=== PATIENT | female | born 1940 | race Asian ===

== ENCOUNTER 2019-01-02 17:25 | Inpatient (IN) | payer MEDICAID ==
[~2019-01-02] VITALS: Ht 160 cm; Wt 46.3 kg
--- NOTE | 2019-01-02 17:48 | NUR ---
PT BIB FAMILY C/C N/V SOB WITH COUGH X 1 WK PER FAMILY S/P FALL X 1 WK AGO AT BEDSIDE TO [facility]
--- NOTE | 2019-01-02 17:57 | NUR ---
PLEASE ENTER FULL NAMES OF CLINICAL DOCUMENT IMPROVEMENT EDUCATOR/RN Patient data collected by (CLINICAL DOCUMENT IMPROVEMENT EDUCATOR):NORMA BROWNE Assessment reviewed and completed by (RN):RONNIE LESTER
--- NOTE | 2019-01-02 18:12 | NUR ---
XRAY AT BEDSIDE
[2019-01-02 18:16] LABS: BASOPHIL % 0.3 % (0-2); RED CELL DISTRIBUTION WIDTH 13.2 % (11.5-14.5)
--- NOTE | 2019-01-02 18:19 | NUR ---
MED IV FOR 2-3/10 BACK PAIN & NAUSEA.
[2019-01-02 18:20] LABS: PLATELET COUNT 703 x10^3mcL (130-400)
[2019-01-02 18:23] LABS: CARBON DIOXIDE 26.2 mmol/L (21-32); CHLORIDE SERUM 105 mmol/L (98-107); CREATININE SERUM 1.1 mg/dL (0.6-1.0); GLUCOSE SERUM 112 mg/dL (74-106); POTASSIUM SERUM 3.9 mmol/L (3.5-5.1); SODIUM SERUM 139 mmol/L (136-145)
[2019-01-02 18:27] LABS: ALBUMIN 3.5 g/dL (3.4-5.0); ALKALINE PHOSPHATASE 123 U/L (46-116); ALT/SGPT 20 U/L (14-59); AST/SGOT 13 U/L (15-37); BILIRUBIN TOTAL 0.62 mg/dL (0.20-1.00); LIPASE 158 IU/L (73-393); TOTAL PROTEIN, SERUM 8.1 g/dL (6.4-8.2)
--- NOTE | 2019-01-02 18:56 | NUR ---
TAKEN TO RADIOLOGY FOR CT
--- NOTE | 2019-01-02 19:05 | NUR ---
REPORT RECIEVED FROM NORMA GARCIAN. PT IN CT. WILL REASSESS UPON RETURN.
--- NOTE | 2019-01-02 19:51 | NUR ---
PT AWAKE AND ALERT, LAYING IN POSITION OF COMFORT. NS RUNNING AT 100ML/HR. VSS, RESPS E/U, NAD NOTED AT THIS TIME. 2 SIDE RAILS UP, BED IN LOW AND LOCKED POSITION. DAUGHTER AT BEDSIDE. CALL LIGHT W/IN REACH. AWAITING RESULTS.
--- NOTE | 2019-01-02 21:14 | NUR ---
IV ABX STARTED AT 100ML/HR PER MD ORDER. VERIFIED BLOOD CULTURES RECIEVED AT LAB. VSS, RESPS E/U, NAD NOTED AT THIS TIME. WILL CONTINUE TO MONITOR. DAUGHTER AT BEDSIDE. CALL LIGHT W/IN REACH.
[2019-01-02] MEDS ORDERED: NOR10 PO (22:18)
[2019-01-02] MEDS ORDERED: TRAMADOL HCL50 MG PO (22:19)
--- NOTE | 2019-01-02 22:31 | NUR ---
REPORT GIVEN TO JASWANT GARCIA
[2019-01-02 23:17] VITALS: BP 173/42
--- NOTE | 2019-01-02 23:30 | NUR ---
RECEVIED PT FROM ER, PT ADMIT FOR PNA, PT IS A/O X4, VERBAL RESPONSIVE, ABLE TO TELL WHAT SHE NEEDS. LUNG SOUND DIM CELINA BASE. DENY ANY SOB, BUT PT C/O DRY COUGH, OCCASIONALLY, PO2 96% IN ROOM AIR. DENY ANY CHEST PAIN OR DISCOMFORT, BOWEL SOUND PRESENT ALL 4 QUADRANTS, NO DISTENTION, NO TENDER. PEDAL PULSE PRESENT BOTH FEET, NO EDEMA, IV AT LEFT AC, NO LEAKING, NO INFILTRATION. PT RECENTLY HAS TAILBONE FX. PT UNABLE TO STAND UP. SKIN IS INTACT. ALL ADLS ASSIST, ALL NEED MET, CALL LIGHT IN REACH, WILL CONTINUE TO MONITOR.
--- NOTE | 2019-01-02 23:30 | NUR ---
RECIEVED PT FROM MING GARCIA. PT RESTING IN BED AT THIS TIME. DENIES ANY PAIN OR DISCOMFORT AT THIS TIME. BREATHING E/U ON RA. BED AT LOWEST POSITION. CALL LIGHT WITHIN REACH. WILL CONTINUE TO MONITOR.
[2019-01-03 00:04] VITALS: BP 143/55
[2019-01-03 02:00] VITALS: BP 160/59
[2019-01-03 05:29] VITALS: BP 160/59
--- NOTE | 2019-01-03 06:37 | NUR ---
PT RESTING IN BED COMFORTABLY. NO S/S OF PAIN AT THIS TIME. PT BP 160/[address] CYR [address] CYR ORDERED APRESOLINE, PT HR TOO LOW TO GIVE. MEDICATED PT WITH MORNING BP MED EARLY. DR CYR NOTIFIED. BED AT LOWEST POSITION. CALL LIGHT WITHIN REACH. WILL ENDORSE TO DAY NURSE.
--- NOTE | 2019-01-03 07:30 | NUR ---
PT ENDORSE TO ME THIS MORNING, LAYING IN BED RESTING. AA/O X4, BREATHING EVEN AND UNLABORED ON R, NO ACUTE RESP DISTRESS OR SOB NOTED. EDUCATED PT ON USING I.S., AGREED. MEDSURG/ DENIES ANY CP OR PRESSURE. BOWEL SOUNDS ACTIVE IN ALL FOUR QUADS. INCONT AT TIMES/ BEDPAN. GEN WEAKNESS. IV TO THE LAC INTACT AND PATENT/ INFUSING AT 70ML/HR/ NO REDNESS OR SWELLING NOTED. WILL CONTINUE TO MONITOR.
--- NOTE | 2019-01-03 07:30 | NUR ---
PT ENDORSE TO ME THIS MORNING, SITTING UP IN BED. BREATHING EVEN AND UNLABORED ON RA, NO ACUTE RESP DISTRESS OR SOB NOTED. MEDSURG, DENIES ANY CP OR PRESSURE. GEN WEAKNESS NOTED, TRIED TO EDUCATE PT TO CALL FOR ASSIST WHEN SHE NEED TO GET UP FROM BED OR CHAIR, PT SAID OK. IV TO TO THE LAC INTACT AND PATENT/ PER NIGHT NURSE PT REFUSING TO HAVE IV FLUIDS INFUSING. CALL LIGHT IN REACH. BED IN LOW POSITION/ WILL CONTINUE TO MONITOR.
[2019-01-03 09:15] VITALS: BP 132/43
[2019-01-03 10:35] LABS: BASOPHIL % 0.3 % (0-2); RED CELL DISTRIBUTION WIDTH 13.2 % (11.5-14.5)
[2019-01-03 10:39] LABS: PLATELET COUNT 613 x10^3mcL (130-400)
[2019-01-03 14:02] LABS: CALCIUM 8.7 mg/dL (8.5-10.1); CARBON DIOXIDE 23.8 mmol/L (21-32); CHLORIDE SERUM 105 mmol/L (98-107); GLUCOSE SERUM 140 mg/dL (74-106); POTASSIUM SERUM 4.1 mmol/L (3.5-5.1); SODIUM SERUM 141 mmol/L (136-145)
[2019-01-03 14:40] LABS: microscopic required? YES; urine erythrocyte NEGATIVE (NEGATIVE)
[2019-01-03 15:17] LABS: AMPHETAMINE QUAL UR NONE DETECTED (See below)
--- NOTE | 2019-01-03 15:39 | NUR ---
PT WAS SEEN FOR DYSPHAGIA. PT WAS ABLE TO SAFELY SWALLOW PUREE DIET WITH THIN LIQUID. PT HAD MILD TO MODERATE DIFFICULTY WITH MASTICATION SKILLS. RECOMMENDATION PUREE DEIT WITH THIN LIQUID SMALL BITES AND SIPS ONLY 1:1 SUPERVISION
[2019-01-03 17:18] VITALS: BP 142/46
--- NOTE | 2019-01-03 19:30 | NUR ---
WILL ENDORSE TO INCOMING RN. NO ACUTE CHANGES AT THIS TIME.
[2019-01-03 20:00] VITALS: BP 162/45
--- NOTE | 2019-01-03 20:00 | NUR ---
RECEIVED PT IN BED, RESTING QUIETLY. A/OX4. DENIES HEADACHE/DIZZINESS. RESP. EVEN AND UNLABORED. ON ROOM AIR, NO ACUTE DISTRESS NOTED. AFEBRILE AND VITAL SIGNS STABLE. DENIES CP OR ANY DISCOMFORT AT THIS TIME. IVF, NS AT 80ML/HR, INTACT ABD INFUSING VIA LAC, SITE CLEAR. ASSISTED WITH HS CARE. ABLE TO REPOSITION SELF IN BED. CALL LIGHT WITHIN REACH.WILL CONTINUE TO MONITOR.
--- NOTE | 2019-01-04 02:08 | NUR ---
NO COMPLAINTS NOTED AT THIS TIME. EYES CLOSED, APPEARS ASLLEP, EASILY AROUSABLE. RESP. EVEN AND UNLABORED. NO ACUTE DISTRESS NOTED. WILL CONTINUE TO MONITOR.
[2019-01-04 05:29] VITALS: BP 165/55
--- NOTE | 2019-01-04 06:21 | NUR ---
SLEPT WELL. NO SIGNIFICANT CHANGE IN PT,S CONDITION . AFEBRILE AND VITAL SIGNS STABLE. RESP. EVEN AND UNLABORED. ON ROOM AIR, NO ACUTE DISTRESS NOTED. NO COMPLAINTS OF PAIN OR ANY DISCOMFORT DURING THE NIGHT. KEPT CLEAN AND DRY. KEPT COMFORTABLE. WILL CONTINUE TO MONITOR.
--- NOTE | 2019-01-04 07:30 | NUR ---
PT ENDORSE TO ME THIS MORNING, LAYING IN BED RESTING, AA/O X4, MEDSURG/ DENIES ANY CP OR PRESSURE. BOWEL SOUNDS ACTIVE IN ALL FOUR QUADS, LAST BM 01/03. VOIDS FREELY/ BED BROWN OR INCONT AT TIMES. BEDREST DUE TO DISCOMFORT TO TAIL BONE. IV TO THE LAC INTACT AND PATENT, NO REDNESS OR SWELLING NOTED. CALL LIGHT IN REACH. BED IN LOW POSITTION. WILL CONTINUE PLAN OF CARE.
[2019-01-04 08:22] LABS: BASOPHIL % 0.5 % (0-2); CALCIUM 8.8 mg/dL (8.5-10.1); CARBON DIOXIDE 27.1 mmol/L (21-32); CHLORIDE SERUM 103 mmol/L (98-107); GLUCOSE SERUM 125 mg/dL (74-106); POTASSIUM SERUM 3.6 mmol/L (3.5-5.1); RED CELL DISTRIBUTION WIDTH 13.2 % (11.5-14.5); SODIUM SERUM 140 mmol/L (136-145)
[2019-01-04 08:25] LABS: PLATELET COUNT 579 x10^3mcL (130-400)
[2019-01-04 08:37] VITALS: BP 167/53
[2019-01-04] MEDS ORDERED: ZOS3PM IV (12:38)
--- NOTE | 2019-01-04 13:54 | NUR ---
1. Recommend continuing cardiac diet w/ ensure Enlive BID.
--- NOTE | 2019-01-04 13:54 | NUR ---
Initial Nutrition Assessment: 253/B REINALDO ALONSO IA HR Dx: PNA PMHx: HTN PSHx: R ORIF Labs: BG 140H Meds: Colace, Zofran, zosyn Diet: cardiac PO Intake: (01/03) lunch 50%, breakfast 40% Ht: 160.02 cm (63") Wt: 46 kg (101#) BMI: 18.1 kg/m2 Bed scale: 46.2 kg IBW: 115# (52 kg) %IBW: 87 UBW: 49-50 kg Age: 78/F Food Allergies: NKFA Skin: intact Alexey: 14 Edema: none GI: Last BM: 01/02 Trigger: appears underweight/malnourished, unintentional weight loss. Poor PO >3d Per H&P, Pt is a 78 year old female with PMH of HTN, R ORIF (2008) came in c/o nausea and vomiting since [address]N Visit (01/04): Patient was alert and oriented and she said that she ate oatmeal, milk and pancakes for breakfast. Patient is willing to consume ONS Ensure. Discussed recommendations with PRISM MEASURER Cortez. She said that patient is being D/C today to SNF. Problem with: N/V/D/C: no Problems with: Chewing/Swallowing: none Current appetite: improving, good today Recent wt change: none %wt change: N/A Vitamin/Supplement use: MVI Special diet at home: regular Physical activity: none Nutrition education given: low sodium diet education was provided. Concepts like label reading were emphasized. Food-drug interactions: Colace- high fiber w/6560-3437 ml fluids Education given: yes Estimated Nutritional Needs Based on current body weight 46 kg Energy: 9913-0279 kcal/d (30-35 kcal/kg) geriatric maintenance Protein: 55-60 g/d (1.2-1.3 g/kg) - geriatric maintenance Fluid: 5357-5285 ml/d (1 ml/kcal) or per doctor Nutrition Diagnosis 1. Inadequate oral intake related to decreased appetite as evidenced by documented PO 50%. Intervention 1. Recommend continuing cardiac diet w/ ensure Enlive BID. Monitor/Evaluate Goal: PO intake at least 75% of estimated needs Monitor: PO intake, Labs, GI function F/U in 3-5 days as moderate risk 01/07-
--- NOTE | 2019-01-04 16:32 | NUR ---
PHYSICAL THERAPY DAILY NOTES CO-SIGN All documentation done by the Tool And Equipment Rental Clerk for 01/04/19 has been reviewed. I agree with the documentation. Reviewed/Co-Signed by: Rubi Cortez PT Documentation Done by:BOSTON JORGENSEN PTA
[2019-01-04 17:08] VITALS: BP 126/45
--- NOTE | 2019-01-04 18:46 | NUR ---
NO ACUTE CHANGES AT THIS TIME. NO ACUTE RESP DISTRESS OR SOB NOTED. SISTER AT BEDSIDE. PT DENIES ANY DISCOMFORT AT THIS TIME. IV TO THE THE LAC INTACT AND PATENT, INFUSING AT 70ML/HR, NO REDNESS OR SWELLING NOTED. WILL ENDORSE TO INCOMING RN.
--- NOTE | 2019-01-04 20:00 | NUR ---
RECEIVED PT RESTING IN BED. A/O X4. DENIES HEADACHE/DIZZINESS. RESP. EVEN AND UNLABORED. ON ROOM AIR, NO ACUTE DISTRESS NOTED. IVF, NS AT 70ML/HR, INTACT AND INFUSING VIA LAC, SITE CLEAR. NO COMPLAINTS NOTED AT THIS TIME. CALL LIGHT WITHIN REACH . WILL CONTINUE TO MONITOR.
[2019-01-04 20:21] VITALS: BP 137/41
--- NOTE | 2019-01-05 01:57 | NUR ---
NO COMPLAINTS NOTED AT THIS TIME. EYES CLOSED, APPEARS ASLEEP, EASILY AROUSABLE. RESP. EVEN AND UNLABORED. NO ACUTE DISTRESS NOTED. WALL LIGHT WITHIN REACH. WILL CONTINUE TO MONITOR.
[2019-01-05 06:10] VITALS: BP 175/53
--- NOTE | 2019-01-05 06:31 | NUR ---
AFEBRILE. B/P THIS AM READS 175/53, NORVASC AM DOSE GIVEN. PT DENIES ANY PAIN OR DISCOMFORT. RESP. EVEN AND UNLABORED. ON ROOM AIR, NO ACUTE DISTRESS NOTED. IVF INTACT AND INFUSING WELL, SITE CLEAR. INCONT. OF URINE AND STOOL. CLEANED AND KEPT COMFORTABLE.WILL ENDORSE TO INCOMING NURSE.
--- NOTE | 2019-01-05 07:13 | NUR ---
RECEIVED BS REPORT FROM [facility] NURSE, PATIENT AWAKE/ALERT AND REQUESTING TO USE BEDPAN FOR BM. PROVIDED AND IN PLACE. DENIES PAIN AT THIS TIME, BED AT LOWEST POSITION AND CALL LIGHT WITHIN REACH, DEMONSTRATES UNDERSTANDING ON HOW TO USE.
--- NOTE | 2019-01-05 07:40 | NUR ---
PATIENT A/OX4, ABLE TO MAKE NEEDS KNOWN AND FOLLOW COMMANDS. EQUAL CONSULTING INTERN STRENGTH. LUNGS DIM TO BASES OTHERWISE CTA, NO RESP DISTRESS NOTED ON RA, BREATHING E/U. OCC COUGH NOTED DRY. BOWEL SOUNDS ACTIVE, DENIES N/V/DIARRHEA, ABD SOFT. PERIPHERAL PULSES PALPABLE, NO EDEMA NOTED. SKIN INTACT. DENIES PAIN AT THIS TIME. IV ACCESS TO LAC SITE WNL. CALL LIGHT WITHIN REACH AND DEMONSTRATES UNDERSTANDING ON HOW TO USE. BED AT LOWEST POSITION.
[2019-01-05 08:57] VITALS: BP 170/59
[2019-01-05 10:00] VITALS: BP 168/57
--- NOTE | 2019-01-05 15:50 | NUR ---
PHYSICAL THERAPY DAILY NOTES CO-SIGN All documentation done by the Assigner for 01/05/19 has been reviewed. I agree with the documentation. Reviewed/Co-Signed by: Rubi Cortez PT Documentation Done by:BOSTON JORGENSEN PTA
[2019-01-05 16:34] VITALS: BP 135/54
--- NOTE | 2019-01-05 18:45 | NUR ---
PATIENT WITH NO SIGNFICANT CHANGE IN CONDITION AND NO ACUTE DISTRESS THROUGHOUT SHIFT. PERICARE PROVIDED FREQUENTLY UPON INCONTINENT VOIDINGS. REPOSITIONED FREQUENTLY, SACRAL INTACT/NO REDNESS. IV SITE WNL. WILL CONT TO MONITOR AND ENDORSE TO NOC NURSE.
--- NOTE | 2019-01-05 19:10 | NUR ---
REC'D PT FROM DAY NURSE. PT RESTING IN BED. AAOX4, SPEECH CLEAR, FOLLOWS COMMANDS. MED SURG, NO TELE. DENIES CP, DIZZINESS, OR PALPITATIONS. DENIES RESP DISTRESS OR SOB. BREATHING EVEN/UNLABORED ON RA. ABD SOFT/ROUND. DENIES ABD PAIN, TENDERNESS, OR N/V. VOIDING FREELY WITH INCONTINENCE. GEN WEAKNESS. UP WITH PT. REPOSITIONS SELF. DENIES PAIN AT THIS TIME. IV TO LAC PATENT AND INFUSING, SITE WNL. CALL LIGHT WITHIN REACH, BED AT LOWEST POSITION. WILL CONTINUE TO MONITOR.
[2019-01-05 21:09] VITALS: BP 141/39
[2019-01-06] VITALS (8 sets, daily range): BP systolic 159–1178; BP diastolic 52–62; Ht 160 cm; Wt 46.3 kg
--- NOTE | 2019-01-06 01:24 | NUR ---
PT RESTING IN BED WITH EYES CLOSED. NO SIGNS OF DISTRESS OR PAIN NOTED. BREATHING EVEN/UNLABORED ON RA. PT LAYING SUPINE IN LOW FOWLERS POSITION. CALL LIGHT WITHIN REACH, BED AT LOWEST POSITION. WILL CONTINUE TO MONITOR.
--- NOTE | 2019-01-06 06:31 | NUR ---
PT AWAKE AND RESTING IN BED. NO SIGNS OF DISTRESS NOTED. BREATHING EVEN/UNLABORED ON RA. DENIES ANY PAIN OR DISCOMFORT. BP ELEVATED 178/61, HR 55. NORVASC [address] CYR MADE AWARE VIA PAGEGATE. CALL LIGHT WITHIN REACH, BED AT LOWEST POSITION. WILL ENDORSE TO DAY NURSE.
[2019-01-06 06:32] LABS: BASOPHIL % 0.6 % (0-2); RED CELL DISTRIBUTION WIDTH 13.1 % (11.5-14.5)
[2019-01-06 06:37] LABS: CALCIUM 8.8 mg/dL (8.5-10.1); CARBON DIOXIDE 28.6 mmol/L (21-32); CHLORIDE SERUM 107 mmol/L (98-107); CREATININE SERUM 0.9 mg/dL (0.6-1.0); GLUCOSE SERUM 87 mg/dL (74-106); POTASSIUM SERUM 3.7 mmol/L (3.5-5.1); SODIUM SERUM 144 mmol/L (136-145)
[2019-01-06 06:38] LABS: PLATELET COUNT 487 x10^3mcL (130-400)
--- NOTE | 2019-01-06 07:45 | NUR ---
PATIENT RESTING IN BED, NO ACUTE DISTRESS NOTED. PATIENT DENIES SOB, ON ROOM AIR. PATIENT C/O PAIN TO RIGHT HIP 07/11, PATIENT STATES PAIN IS TOLERABLE. PATIENT AWARE TO NOTIFY IF PAIN INCREASES, PATIENT VERBALIZE UNDERSTANDING. NS IV INFUSING TO LAC AT 70 ML/HR, NO S/S OF INFILTRATION. CALL LIGHT WITHIN REACH, BED IN LOW POSITION, WILL CONTINUE TO MONITOR.
--- NOTE | 2019-01-06 09:15 | NUR ---
PATIENT AMBULATING HALLWAYS USING WALKER, SLOW GAIT NOTED. PHYSICAL THERAPY AT SIDE. NO ACUTE DISTRESS NOTED.
--- NOTE | 2019-01-06 13:00 | NUR ---
PATIENT IS SITTING UP IN BED, EATING LUNCH. PATIENT TOLERATING MEAL. DENIES PAIN. NO ACUTE DISTRESS NOTED, ALL NEEDS MET. CALL LIGHT WITHIN REACH, WILL CONTINUE TO MONITOR PATIENT.
--- NOTE | 2019-01-06 16:23 | NUR ---
PHYSICAL THERAPY DAILY NOTES CO-SIGN All documentation done by the Pick And Shovel Worker for 01/06/19 has been reviewed. I agree with the documentation. Reviewed/Co-Signed by: Rubi Cortez PT Documentation Done by:BOSTON JORGENSEN PTA
--- NOTE | 2019-01-06 17:00 | NUR ---
IV TO LAC BECAME INFILTRATED. IV TO LAC REMOVED, CATH INTACT. RN MING INSERTED NEW IV TO RAC, IV CDI & PATENT.
--- NOTE | 2019-01-06 17:27 | NUR ---
ALONZO JI AWARE PATIENT BP WAS 185/62, HR 65. ALONZO JI GAVE TELEPHONE ORDER READBACK FOR NORVASC 5MG PO ONCE, WILL CARRY OUT ORDERS AT THIS TIME.
--- NOTE | 2019-01-06 18:15 | NUR ---
REASSESSED PATIENT BP PRIOR TO D/C, PATIENT BP WAS STILL ELEVATED. BP:183/59 HR:67. DR CYR MADE AWARE, WILL FOLLOW UP FOR ANY ADDITIONAL ORDERS.
--- NOTE | 2019-01-06 19:00 | NUR ---
REPORT GIVEN TO ANAY CEBALLOS. JOSE OLSEN AWARE PATIENTS TRANSPORTATION WAS PUSHED BACK DUE TO BP BEING ELEVATED, JOSE OLSEN WILL GIVE ANY NEW ORDERS PLACED BY DR CYR.
--- NOTE | 2019-01-06 19:10 | NUR ---
REC'D PT FROM DAY NURSE. PT RESTING IN BED. AAOX4, SPEECH CLEAR, FOLLOWS COMMANDS. MED SURG, NO TELE. DENIES CP, DIZZINESS, OR PALPITATIONS. DENIES RESP DISTRESS OR SOB. BREATHING EVEN/UNLABORED ON RA. ABD SOFT/ROUND. DENIES ABD PAIN, TENDERNESS, OR N/V. VOIDING FREELY WITH INCONTINENCE. GEN WEAKNESS. UP WITH PT. IV TO RAC FLUSHED AND PATENT, SITE WNL. PT TO TX TO ANAY CEBALLOS BUT BP ELEVATED. WILL GIVE HYDRALAZINE PER ORDER.
--- NOTE | 2019-01-06 19:55 | NUR ---
BP 168/58, HR 68 S/P HYDRALAZINE 25 MG PO. PT STATES SHE "FEELS FINE." DR. CYR MADE AWARE. STATED TO RECHECK IN 30 MIN. [facility] AT THE NURSING STATION- UNABLE TO WAIT. WILL CALL [facility] BACK ONCE BP STABLE. CALLED ANAY CEBALLOS ([phone]) AND NOTIFIED SRINIVAS, THE NURSE.
--- NOTE | 2019-01-06 20:01 | NUR ---
DR CYR AT NURSES STATION. STATED OK TO TX PATIENT WITH CURRENT BP. [facility] NOTIFIED. PER [facility], TRANSFER NOT AUTHORIZED. CHARGE NURSES, CORNELIA AND ERICKSON, AND COUNTERINTELLIGENCE AGENT, VIKI BARRETO. WILL CALL CLIENT SERVER PROGRAMMER.
--- NOTE | 2019-01-06 20:41 | NUR ---
PER ESTEVAN, TREASURY DIRECTOR, OK FOR [facility] TO TX PT WITH GURNEY SERVICE. HOSPITAL TO BE BILLED LAST RESORT. CURRENT BP 166/62. [facility] NOTIFIED BUT STATED UNABLE TO TRANSFER THE PT BC THEY DO NOT PROVIDE GURNEY SERVICE. ESTEVAN MADE AWARE. CALLED SRINIVAS RN FROM [facility]. ABLE TO HOLD BED FOR TOMORROW. ONLY NEW REPORT REQUIRED PRIOR TO TRANSFER. DR. GALVANBA AWARE. PT TO STAY TONIGHT UNLESS ANOTHER TRANSFER SERVICE IS ARRANGED.
--- NOTE | 2019-01-06 21:20 | NUR ---
CALLED [facility] AND WAS ABLE TO TALK TO MATTIE AND SHE SAID THAT PT DO NOT REQUIRE TREATMENT OR SERVICE ENROUTE SO THEY CANNOT BILLED THE INSURANCE. IT WILL BE FRAUDULENT.
--- NOTE | 2019-01-06 21:58 | NUR ---
ON AIR DIRECTOR WORKING ON ARRANGING TRANSFER, BUT PT WILL LIKELY STAY THE NIGHT. PT MADE AWARE. IVF CONNECTED. ATTEMPTED TO REACH SISTER, OCHOA [phone]. MALE VOICE ANSWERED AND STATED WRONG NUMBER.
--- NOTE | 2019-01-07 02:16 | NUR ---
PT RESTING IN BED WITH EYES CLOSED. NO SIGNS OF DISTRESS NOTED. BREATHING EVEN/UNLABORED ON RA. CALL LIGHT WITHIN REACH, BED AT LOWEST POSITION. WILL CONTINUE TO MONITOR.
[2019-01-07 05:13] VITALS: BP 179/62
--- NOTE | 2019-01-07 05:22 | NUR ---
PT RESTING IN BED WITH EYES CLOSED. AWAKENS WITH VERBAL STIMULI. BREATHING EVEN/UNLABORED ON RA. REPORTS MILD RUQ ABD PAIN BUT TOLERABLE AND DENIED PAIN MEDS. DENIES ANY SOB. BP 179/62, MAP 82, HR 64. DR. CYR MADE AWARE VIA PAGEGATED. SCHEDULED NORVASC 10 MG PO GIVEN EARLY.
[2019-01-07 06:20] VITALS: BP 170/54
--- NOTE | 2019-01-07 06:21 | NUR ---
BP 170/54, MAP 93, HR 60 S/P EARLY NORVASC 10 MG PO. SPOKE TO DRS. CYR AND DAVID. STATED WILL ORDER HYDRALAZINE PO PRN.
[2019-01-07 06:23] LABS: BASOPHIL % 0.3 % (0-2); RED CELL DISTRIBUTION WIDTH 13.8 % (11.5-14.5)
[2019-01-07 06:57] LABS: CALCIUM 9.1 mg/dL (8.5-10.1); CARBON DIOXIDE 25.6 mmol/L (21-32); CHLORIDE SERUM 105 mmol/L (98-107); CREATININE SERUM 0.9 mg/dL (0.6-1.0); GLUCOSE SERUM 89 mg/dL (74-106); POTASSIUM SERUM 3.3 mmol/L (3.5-5.1); SODIUM SERUM 143 mmol/L (136-145)
--- NOTE | 2019-01-07 07:30 | NUR ---
RECEIVED PATIENT IN BED, AWAKE ALERT AND ORIENTED. IVF INFUSING WELL TO RT A/C. RESP EVEN AND UNLABORED, LUNGS CLEAR ON ROOM AIR. PER NOC NURSE PATIENT HAS HAD LOOSE STOOL DURING THE NOC. USES BEDPAN WITH ASSIST. DENIES ANY PAIN OR DISCOMFORT. PLAN OF CARE DISCUSSED WITH PATIENT TO INCLUDE DISCHARGE PLAN TO SNF TODAY. WILL CONTINUE TO MONITOR.
[2019-01-07 07:56] LABS: PLATELET COUNT 509 x10^3mcL (130-400)
[2019-01-07 08:05] VITALS: BP 127/55
--- NOTE | 2019-01-07 13:37 | NUR ---
PATIENT REMAINS SITTING UP IN BED. D/C TO SNF TODAY FOR P.T. AND ANTIBIOTICS. AWAITING PATIENT'S INSURANCE COMPANY TO ARRANGE FOR W/C TRANSPORT AND TO NOTIFY US OF THE TIME FOR PICKUP.
--- NOTE | 2019-01-07 16:05 | NUR ---
PHYSICAL THERAPY DAILY NOTES CO-SIGN All documentation done by the [employer] for 01/07/19 has been reviewed. I agree with the documentation. Reviewed/Co-Signed by: Rubi Cortez PT Documentation Done by:BOSTON JORGENSEN PTA
[2019-01-07 16:43] VITALS: BP 135/54
[2019-01-07 17:45] VITALS: BP 159/52
--- NOTE | 2019-01-07 18:00 | NUR ---
I HAVE REVIEWED THE DATA COLLECTION BY MILK DRIER (NAME): ENTERED ON (DATE/TIME): I CONCUR WITH THE DATA AND ANY EXCEPTIONS OR COMMENTS ARE LISTED BELOW: PATIENT'S PLAN OF CARE WAS DISCUSSED AND REVIEWED WITH MILK DRIER:[place]
--- NOTE | 2019-01-07 18:13 | NUR ---
PATIENT REMAINS IN BED WITH VISITOR AT BEDSIDE. IVF INFUSING WELL. PATIENT CONTINUES TO WAIT FOR TRANSPORTATION TO BE ARRANGED TO TRANSPORT PATIENT TO SNF. NO CHANGE IN PATIENT'S CONDITION NOTED THIS SHIFT.
--- NOTE | 2019-01-07 19:45 | NUR ---
AOX4. MED SURG. BREATHING E/U ON RA. DENIES SOB/COUGH. BOWEL SOUNDS ACTIVE X 4. SKIN INTACT. DENIES PAIN. IV TO RAC, PATENT, NO REDNESS/SWELLING. BED IN LOWEST POSITION, 2 SIDE RAILS UP, CALL LIGHT IN REACH. INSTRUCTED TO CALL FOR ASSISTANCE.
[2019-01-07 21:12] VITALS: BP 121/41
--- NOTE | 2019-01-07 21:45 | NUR ---
REPORT GIVEN TO SRINIVAS AT [facility]. TRANSPORT BY [facility] ARRANGED FOR [phone].
--- NOTE | 2019-01-08 01:09 | NUR ---
RESTING IN BED WITH EYES CLOSED. BREATHING E/U. NO ACUTE DISTRESS NOTED. WILL CONTINUE TO MONITOR.
--- NOTE | 2019-01-08 03:30 | NUR ---
PT TRANSPORTED TO [facility] VIA [facility] [place] IN NO ACUTE DISTRESS.
== END 2019-01-08 03:40 | DRG 137 ==
LOC: ED 17:25 → MU 22:08
PROVIDERS: Emergency Medicine; Internal Medicine; ADMIT Internal Medicine
DX: J69.0 Pneumonitis due to inhalation of food and vomit (principal); S22.080A Wedge compression fracture of T11-T12 vertebra, initial encounter for closed fracture; E86.0 Dehydration; J44.9 Chronic obstructive pulmonary disease, unspecified; J98.11 Atelectasis; D47.3 Essential (hemorrhagic) thrombocythemia; S32.2XXD Fracture of coccyx, subsequent encounter for fracture with routine healing; I10 Essential (primary) hypertension; Z68.1 Body mass index [BMI] 19.9 or less, adult; Z91.81 History of falling; W19.XXXD Unspecified fall, subsequent encounter; W18.39XA Other fall on same level, initial encounter; Y92.009 Unspecified place in unspecified non-institutional (private) residence as the place of occurrence of the external cause
CPT/HCPCS: 82962; 85060; 92526-GN; 92610-GN; 94150; 97110-GP; 97116-GP; 97530-GP; G0378; J0696; J2270; J2405; J2543; J7030; J7060; J7620; Q0092; Q9967